=== PATIENT | male | born 1985 | race Caucasian/White ===

== ENCOUNTER 2018-06-04 11:06 | Emergency (ER) | payer OTHER ==
[2018-06-04 11:26] VITALS: BP 115/67; PULSE 58; TEMP 98.6; BMI 25.8
[2018-06-04] MEDS ORDERED: IBUPROFEN 400 MG TABLET (FP) PO ONE ×2 (11:34→11:54)
--- NOTE | 2018-06-04 11:34 | PDOC ---
History of Present Illness - General Chief Complaint: Injury Stated Complaint: RT ANKLE INJURY Time Seen by Provider: 06/04/18 11:27 Past History - Past Medical History Allergies/Adverse Reactions: Allergies Allergy/AdvReac Type Severity Reaction Status Date / Time No Known Allergies Allergy Verified 06/04/18 11:29 Home Medications: Ambulatory Orders No Home Medications 0 dose .ROUTE UTDICT 10/02/13 Anemia: No Asthma: No Cancer: No Cardiac Disorders: No CVA: No COPD: No CHF: No Dementia: No Diabetes: No GI Disorders: No Disorders: No HTN: No Hypercholesterolemia: No Liver Disease: No Seizures: No Thyroid Disease: No - Surgical History Abdominal Surgery: No Appendectomy: No Cardiac Surgery: No Cholecystectomy: No Lung Surgery: No Neurologic Surgery: No Orthopedic Surgery: No - Immunization History Immunization Up to Date: Yes - Suicide/Smoking/Psychosocial Hx Smoking Status: No Smoking History: Never smoked Have you smoked in the past 12 months: No Number of Cigarettes Smoked Daily: 0 Hx Alcohol Use: No Drug/Substance Use Hx: No Substance Use Type: None Hx Substance Use Treatment: No *Physical Exam - Vital Signs Last Vital Signs Temp Pulse Resp BP Pulse Ox 98.6 F 58 L 16 115/67 99 06/04/18 11:23 06/04/18 11:23 06/04/18 11:23 06/04/18 11:23 06/04/18 11:23 Moderate Sedation - Procedure Monitoring Vital Signs: Procedure Monitoring Vital Signs Temperature 98.6 F 06/04/18 11:23 Pulse Rate 58 L 06/04/18 11:23 Respiratory Rate 16 06/04/18 11:23 Blood Pressure 115/67 06/04/18 11:23 O2 Sat by Pulse Oximetry (%) 99 06/04/18 11:23 ED Treatment Course - RADIOLOGY Radiology Studies Ordered: Category Date Time Status ANKLE & FOOT-RIGHT* [RAD] Stat Radiology 06/04/18 11:27 Ordered *DC/Admit/Observation/Transfer Diagnosis at time of Disposition: Ankle sprain Qualifiers: Encounter type: initial encounter Involved ligament of ankle: unspecified ligament Laterality: right Qualified Code(s): S93.401A - Sprain of unspecified ligament of right ankle, initial encounter - Discharge Dispostion Disposition: HOME Condition at time of disposition: Stable Decision to Admit order: No - Referrals Referrals: Camden Rodriguez DO [Staff Physician] - Percy Nicole MD [Staff Physician] - - Patient Instructions Printed Discharge Instructions: DI for Ankle Sprain Additional Instructions: You sprained your ankle. Your x-ray was negative for broken bones. Please keep your ankle elevated while at rest above the level of your heart to reduce swelling. You may take Motrin 800 mg every 8 hours to help reduce pain and swelling. Please ice the area for 20 minute intervals at least 5 times a day to help reduce swelling. Please wear the Fede wrap. Please follow-up with orthopedics in 1 week if your symptoms are not improving. Return to the emergency department if you have worsening pain, or unable to walk , numbness and tingling of the foot, or had any changes in her symptoms. - Post Discharge Activity Forms/Work/School Notes: Back to Work
== END 2018-06-04 12:28 | disposition home or self-care (01) ==
LOC: JERFT 11:06
DX: S93.401A Sprain of unspecified ligament of right ankle, initial encounter (principal); X58.XXXA Exposure to other specified factors, initial encounter; Y93.89 Activity, other specified; Y92.89 Other specified places as the place of occurrence of the external cause
CPT/HCPCS: 73610-TC-RT-FY; 73630-TC-RT-FY; 99281-25

== ENCOUNTER 2020-04-16 15:42 | Emergency (ER) | payer OTHER ==
[2020-04-16 15:53] VITALS: BP 115/58; PULSE 67; TEMP 97.9; BMI 25.1
[2020-04-16] MEDS ORDERED: DIPHTH,PERTUSS(ACELL),TET 0.5 ML DISP.SYRIN IM ONE ×2 (16:35→16:39)
[2020-04-16] MEDS ORDERED: BACITRACIN 15 GM TUBE TOPICAL OINTMENT ONE (16:39)
[2020-04-16] MEDS ORDERED: MUPIROCIN 2% TOPICAL OINTMENT 22 GM TUBE TP ONE (16:45)
== END 2020-04-16 17:20 | disposition home or self-care (01) ==
LOC: JERFT 15:42
PROC: 0JQ10ZZ Repair Face Subcutaneous Tissue and Fascia, Open Approach (ICD-10-PCS; principal; 2020-04-16)
PROC: 3E0234Z Introduction of Serum, Toxoid and Vaccine into Muscle, Percutaneous Approach (ICD-10-PCS; 2020-04-16)
DX: S01.81XA Laceration without foreign body of other part of head, initial encounter (principal)
CPT/HCPCS: 90715; 99284-25

== ENCOUNTER 2023-08-08 07:36 | Emergency (ER) | payer OTHER ==
[2023-08-08 07:49] VITALS: BP 117/71; PULSE 64; RESP 20; TEMP 98.1; BMI 25.1
[2023-08-08] MEDS ORDERED: KETOROLAC TROMETHAMINE 30 MG/1 ML VIAL IVPUSH ONE (08:08)
[2023-08-08] MEDS ORDERED: NAPROXEN 500 MG TABLET ONE (08:17)
[2023-08-08] MEDS: NAPROXEN 500 MG TABLET PO ONE (08:18)
== END 2023-08-08 08:22 | disposition home or self-care (01) ==
LOC: JER 07:36
DX: S80.02XA Contusion of left knee, initial encounter (principal); M70.52 Other bursitis of knee, left knee; W10.8XXA Fall (on) (from) other stairs and steps, initial encounter; Y99.0 Civilian activity done for income or pay
CPT/HCPCS: 73562-TC-LT-FY; 99283-25